=== PATIENT | male | born 1995 | race Caucasian/White ===

== ENCOUNTER 2018-04-03 12:46 | Emergency (ER) | payer MEDICAID ==
[~2018-04-03] VITALS: Ht 188 cm; Wt 113.6 kg
[~2018-04-03 12:46] MED LIST: HYDR1TAB PO; NO HOME MEDS
[2018-04-03 13:57] LABS: BASOPHILS % (AUTO) 0.4 % (0-1); EOSINOPHILS # (AUTO) 0.1 X10'3 (0-0.9); HEMATOCRIT 46.9 % (42.0-52.0); HEMOGLOBIN 16.1 g/dl (14.0-17.9); LYMPHOCYTES # (AUTO) 1.8 X10'3 (1.1-4.8); LYMPHOCYTES % (AUTO) 24.3 % (21-51); MEAN CORPUSCULAR HEMOGLOBIN 29.7 PG (27.0-31.0); MEAN CORPUSCULAR HGB CONC 34.3 % (33.0-36.5); MEAN CORPUSCULAR VOLUME 86.6 FL (78-98); MEAN PLATELET VOLUME 7.5 FL (7.4-10.4); MONOCYTES # (AUTO) 0.6 X10'3 (0-0.9); MONOCYTES % (AUTO) 7.8 % (2-12); NEUTROPHILS # (AUTO) 4.9 X10'3 (1.8-7.7); NEUTROPHILS % (AUTO) 66.5 % (42-75); PLATELET COUNT 372 X10'3 (140-440); RED BLOOD COUNT 5.41 X10'6 (4.70-6.10); RED CELL DISTRIBUTION WIDTH 12.6 % (11.5-14.5); WHITE BLOOD COUNT 7.4 X10'3 (4.5-11.0)
[2018-04-03 14:10] LABS: INR 1.1 INR; PARTIAL THROMBOPLASTIN TIME 26 SECONDS (22-32); PROTHROMBIN TIME 11.5 SECONDS (9.0-12.0)
[2018-04-03 14:13] LABS: ALANINE AMINOTRANSFERASE 42 U/L (12-78); ALBUMIN 4.5 G/DL (3.4-5.0); ALBUMIN/GLOBULIN RATIO 1.3 (1.1-1.5); ALKALINE PHOSPHATASE 64 IU/L (46-116); ANION GAP 11 (8-16); ASPARTATE AMINO TRANSFERASE 18 U/L (10-37); BILIRUBIN,TOTAL 0.6 MG/DL (0.1-1.0); BLOOD UREA NITROGEN 16 MG/DL (7-18); BUN/CREATININE RATIO 14.7 (5.4-32.0); CALCIUM 9.3 MG/DL (8.5-10.1); CHLORIDE 103 MMOL/L (99-107); CREATININE 1.09 MG/DL (0.60-1.10); GLUCOSE 93 MG/DL (70-104); POTASSIUM 3.9 MMOL/L (3.5-5.1); SODIUM 142 MMOL/L (135-145); TOTAL CARBON DIOXIDE 28.4 MMOL/L (24-32); TOTAL PROTEIN 7.9 G/DL (6.4-8.2); eGFR 83 ML/MIN
[2018-04-03 14:44] VITALS: BP 150/60
== END 2018-04-03 14:47 | disposition home or self-care (01) ==
LOC: ER 12:47
DX: R07.89 Other chest pain (principal); F12.90 Cannabis use, unspecified, uncomplicated; F17.200 Nicotine dependence, unspecified, uncomplicated; Z98.890 Other specified postprocedural states; Z60.2 Problems related to living alone; Z79.899 Other long term (current) drug therapy
CPT/HCPCS: 36415; 71045; 80053; 84484; 85025; 85610; 85730; 93005; 99284

== ENCOUNTER 2018-04-15 02:55 | Emergency (ER) | payer MEDICAID ==
[~2018-04-15] VITALS: Ht 181 cm; Wt 111.0 kg
[2018-04-15 03:13] VITALS: BP 130/80
[2018-04-15] MEDS ORDERED: ketorolac trometh inj. 60 MG/2 ML VIAL IM ONE (04:55)
[2018-04-15] MEDS ORDERED: proCHLORperazine 10mg tablet PO ONE (04:55)
== END 2018-04-15 05:32 | disposition home or self-care (01) ==
LOC: ER 02:56
DX: R51 Headache (principal); F12.90 Cannabis use, unspecified, uncomplicated; Z90.89 Acquired absence of other organs
CPT/HCPCS: 70450; 96372; 99284; J1885; Q0164

== ENCOUNTER 2018-04-16 18:48 | Emergency (ER) | payer MEDICAID ==
[~2018-04-16] VITALS: Ht 180.3 cm; Wt 111.0 kg
--- NOTE | 2018-04-16 19:28 | NUR ---
pt placed on cuff turner to monitor ECG
[2018-04-16] MEDS ORDERED: LORazepam 2 mg/ml vial IM ONE (20:20)
[2018-04-16] MEDS ORDERED: HYDROcodone/acetaminophen 10/325mg tab PO ONE (20:20)
[2018-04-16 20:40] VITALS: BP 126/70
--- NOTE | 2018-04-16 21:14 | NUR ---
pt's heart rate dropped 40's momentarily while he was sitting in bed, and quikly returned to 60-70 bpm's. he reported an intermittent sensation, reported it as "a head farias like when i smoke a lot of weed". he became anxious and I re-checked his BP which was elevated at this pont at 141/108. Dr. Hill notified. she will reasses pt.
== END 2018-04-16 21:39 | disposition home or self-care (01) ==
LOC: ER 18:48
DX: R00.2 Palpitations (principal); F41.9 Anxiety disorder, unspecified; R51 Headache; R07.9 Chest pain, unspecified; F17.200 Nicotine dependence, unspecified, uncomplicated; F12.10 Cannabis abuse, uncomplicated
CPT/HCPCS: 36415; 84443; 96372; 99283; J2060

== ENCOUNTER 2018-04-21 02:14 | Emergency (ER) | payer MEDICAID ==
[~2018-04-21] VITALS: Ht 180.3 cm; Wt 106.0 kg
[2018-04-21] MEDS ORDERED: ketorolac trometh. 30mg/ml inj. IV ONE (02:40)
[2018-04-21] MEDS ORDERED: proCHLORperazine 10 MG/2 ml inj IV ONE (02:40)
[2018-04-21] MEDS ORDERED: diphenhydrAMINE 50 mg/ml inj IV ONE (02:40)
[2018-04-21] MEDS ORDERED: iohexol 350MG/ML 100ml bottle IV ONE (02:46)
--- NOTE | 2018-04-21 02:53 | NUR ---
Pt has been experiencing tendancies of fixation of physical ailments and forwarding symptoms to the internet and self diagnosis and experiencing anxiety r/t what he reads. He states he has never been like this in the past, only since about 2 months worth since he has started: "found pills at this one house, I thought they were an abx but they were something else...and I did research on them and I have all the side affects, then at the [facility] I did a hand ful of mushrooms and ever since then I have seen my trasers and even like tonight my calf muscle hurt so I looked it up on the internet and I thought I had a blood clot. And now I think I have an aneurysm" Seems like paranoid behavior, ua collected for UDS.
--- NOTE | 2018-04-21 02:58 | NUR ---
pt going to CT
[2018-04-21 03:18] LABS: URINE AMPHETAMINE SCREEN NEGATIVE (Neg); URINE BARBITUATE SCREEN NEGATIVE (Neg); URINE BENZODIAZEPINES SCREEN NEGATIVE (Neg); URINE CANNABINOID SCREEN POSITIVE (Neg); URINE COCAINE SCREEN NEGATIVE (Neg); URINE METHADONE SCREEN NEGATIVE (Neg); URINE OPIATE SCREEN NEGATIVE (Neg); URINE PHENCYCLIDINE SCREEN NEGATIVE (Neg)
--- NOTE | 2018-04-21 03:40 | NUR ---
went to administer his medications and all he talked about was his IV, fixated on it.
--- NOTE | 2018-04-21 04:55 | NUR ---
PT is currently listening to country music, lights out, and he has the blanket pulled over his head, assume he is asleep
[2018-04-21 05:23] VITALS: BP 145/85
== END 2018-04-21 05:24 | disposition home or self-care (01) ==
LOC: ER 02:14
DX: R07.89 Other chest pain (principal); R51 Headache; F12.90 Cannabis use, unspecified, uncomplicated; Z98.890 Other specified postprocedural states; Z60.2 Problems related to living alone; Z79.899 Other long term (current) drug therapy
CPT/HCPCS: 70496; 80305; 93005; 96374; 96375; 99284; J0780; J1200; J1885; Q9967

== ENCOUNTER 2024-01-13 21:22 | Emergency (ER) | payer MEDICAID ==
[~2024-01-13] VITALS: Ht 188 cm; Wt 136.0 kg
[2024-01-13 21:35] VITALS: TEMP 98.1
[2024-01-13 22:03] LABS: BASOPHILS # (AUTO) 0.1 X10'3 (0-0.2); BASOPHILS % (AUTO) 1.3 % (0-1); EOSINOPHILS # (AUTO) 0.2 X10'3 (0-0.9); EOSINOPHILS % (AUTO) 1.9 % (0-6); HEMATOCRIT 41.6 % (42.0-52.0); HEMOGLOBIN 14.2 g/dl (14.0-17.9); LYMPHOCYTES # (AUTO) 3.6 X10'3 (1.1-4.8); LYMPHOCYTES % (AUTO) 36.3 % (21-51); MEAN CORPUSCULAR HEMOGLOBIN 29.4 PG (27.0-31.0); MEAN CORPUSCULAR HGB CONC 34.1 g/dL (33.0-36.5); MEAN CORPUSCULAR VOLUME 86.2 FL (78-98); MEAN PLATELET VOLUME 7.4 FL (7.4-10.4); MONOCYTES # (AUTO) 0.9 X10'3 (0-0.9); MONOCYTES % (AUTO) 9.5 % (2-12); PLATELET COUNT 335 X10'3 (140-440); RED BLOOD COUNT 4.82 X10'6 (4.70-6.10); RED CELL DISTRIBUTION WIDTH 13.1 % (11.5-14.5); WHITE BLOOD COUNT 9.9 X10'3 (4.5-11.0)
[2024-01-13 22:24] LABS: ALANINE AMINOTRANSFERASE 110 U/L (12-78); ALBUMIN 3.9 G/DL (3.4-5.0); ALBUMIN/GLOBULIN RATIO 1.1 (1.1-1.5); ALKALINE PHOSPHATASE 90 IU/L (46-116); ANION GAP 8 (8-16); ASPARTATE AMINO TRANSFERASE 53 U/L (10-37); BILIRUBIN,TOTAL 0.5 MG/DL (0.1-1.0); BLOOD UREA NITROGEN 14 MG/DL (7-18); BUN/CREATININE RATIO 13.7 (10.0-20.0); CALCIUM 8.6 MG/DL (8.5-10.1); CHLORIDE 104 MMOL/L (99-107); CREATININE 1.02 MG/DL (0.60-1.10); GLUCOSE 93 MG/DL (70-104); POTASSIUM 3.9 MMOL/L (3.5-5.1); SODIUM 140 MMOL/L (135-145); TOTAL CARBON DIOXIDE 28.5 MMOL/L (24-32); TOTAL PROTEIN 7.3 G/DL (6.4-8.2); eCRCL 123 ML/MIN; eGFR 86 ML/MIN
[2024-01-13 22:30] LABS: PRO BRAIN NATRIURETIC PEPTIDE 39 PG/ML (0-125)
[2024-01-13] MEDS ORDERED: ESCI10TA PO (22:32)
[2024-01-13 23:10] VITALS: BP 159/89; PULSE 89; RESP 16; O2SAT 99
== END 2024-01-13 23:39 | disposition home or self-care (01) ==
LOC: ER 21:23
DX: R51.9 Headache, unspecified (principal); R07.9 Chest pain, unspecified; F41.9 Anxiety disorder, unspecified; F12.90 Cannabis use, unspecified, uncomplicated; F17.290 Nicotine dependence, other tobacco product, uncomplicated; Z60.2 Problems related to living alone; Z79.899 Other long term (current) drug therapy; Z98.890 Other specified postprocedural states
CPT/HCPCS: 36415; 71045; 80053; 83880; 84484; 85025; 93005; 99285

== ENCOUNTER 2024-05-21 15:51 | Emergency (ER) | payer MEDICAID, OTHER ==
[~2024-05-21] VITALS: Ht 175.3 cm; Wt 141.4 kg
[~2024-05-21 15:51] MED LIST changes: +ESCI10TA PO
[2024-05-21 17:15] LABS: BASOPHILS # (AUTO) 0.1 X10'3 (0-0.2); BASOPHILS % (AUTO) 1.1 % (0-1); EOSINOPHILS # (AUTO) 0.1 X10'3 (0-0.9); EOSINOPHILS % (AUTO) 1.4 % (0-6); HEMOGLOBIN 15.6 g/dl (14.0-17.9); LYMPHOCYTES # (AUTO) 2.7 X10'3 (1.1-4.8); LYMPHOCYTES % (AUTO) 31.4 % (21-51); MEAN CORPUSCULAR HEMOGLOBIN 29.7 PG (27.0-31.0); MEAN CORPUSCULAR HGB CONC 35.4 g/dL (33.0-36.5); MEAN CORPUSCULAR VOLUME 83.9 FL (78-98); MEAN PLATELET VOLUME 7.6 FL (7.4-10.4); MONOCYTES # (AUTO) 0.5 X10'3 (0-0.9); MONOCYTES % (AUTO) 6.5 % (2-12); NEUTROPHILS % (AUTO) 59.6 % (42-75); PLATELET COUNT 363 X10'3 (140-440); RED BLOOD COUNT 5.24 X10'6 (4.70-6.10); RED CELL DISTRIBUTION WIDTH 13.1 % (11.5-14.5); WHITE BLOOD COUNT 8.5 X10'3 (4.5-11.0)
[2024-05-21 17:26] LABS: ALANINE AMINOTRANSFERASE 101 U/L (12-78); ALBUMIN 4.3 G/DL (3.4-5.0); ALBUMIN/GLOBULIN RATIO 1.1 (1.1-1.5); ALKALINE PHOSPHATASE 101 IU/L (46-116); BILIRUBIN,TOTAL 0.4 MG/DL (0.1-1.0); BLOOD UREA NITROGEN 14 MG/DL (7-18); BUN/CREATININE RATIO 16.9 (10.0-20.0); CHLORIDE 103 MMOL/L (99-107); CREATININE 0.83 MG/DL (0.60-1.10); GLUCOSE 113 MG/DL (70-104); PRO BRAIN NATRIURETIC PEPTIDE 33 PG/ML (0-125); THYROID STIMULATING HORMONE 5.99 ulU/ml (0.34-4.50); TOTAL CARBON DIOXIDE 32.3 MMOL/L (24-32); TOTAL PROTEIN 8.3 G/DL (6.4-8.2); eCRCL 130 ML/MIN; eGFR > 90 ML/MIN
[2024-05-21 17:53] LABS: ANION GAP 3 (8-16); ASPARTATE AMINO TRANSFERASE 37 U/L (10-37); SODIUM 138 MMOL/L (135-145)
[2024-05-21] MEDS ORDERED: HYDR-3686 PO (19:14)
[2024-05-21] MEDS: acetaminophen 325mg tablet PO ONE (19:20)
[2024-05-21 19:24] VITALS: BP 121/98; PULSE 87; RESP 16; TEMP 97.8; O2SAT 100
== END 2024-05-21 19:41 | disposition home or self-care (01) ==
LOC: ER 15:52
DX: R07.89 Other chest pain (principal); F41.9 Anxiety disorder, unspecified; F12.90 Cannabis use, unspecified, uncomplicated; Z90.89 Acquired absence of other organs; Z79.899 Other long term (current) drug therapy; Z60.2 Problems related to living alone
CPT/HCPCS: 36415; 80053; 83880; 84443; 84484; 85025; 93005; 99284

== ENCOUNTER 2024-09-17 08:07 | Emergency (ER) | payer MEDICAID ==
[~2024-09-17] VITALS: Ht 182.9 cm; Wt 136.4 kg
[~2024-09-17 08:07] MED LIST changes: +HYDR-3686 PO
[2024-09-17 08:10] VITALS: BP 155/80; PULSE 70; RESP 16; O2SAT 99
[2024-09-17] MEDS: penicillin V potassium 500mg tablet PO ONE (09:32)
[2024-09-17] MEDS: ibuprofen tablet 400 MG TABLET PO ONE (09:32)
--- NOTE | 2024-09-17 09:43 | Physician Documentation ---
HPI ~ General Chief Complaint: Tooth Problem Stated Complaint: ABSCESS TOOTH Time Seen by MD: 09:00 Primary Medical Doctor: [facility] History of Present Illness HPI Comment Patient is here with dental pain. He has pain in his right lower wisdom tooth. This is the 4th flare up he has had. No trauma no fevers or chills no trouble swallowing or any other symptoms. Medication Reconciliation Allergies: Coded Allergies: No Known Allergies (Unverified , 06/05/14) Scheduled Escitalopram Oxalate (Lexapro), 1 TAB PO DAILY Hydrocodone/Acetaminophen (Vicodin 5-500 Tablet), 1 TAB PO Q6H Scheduled PRN Hydroxyzine Hcl (Atarax), 1 TAB PO Q12H PRN for for anxiety/agitation Miscellaneous Medications Home Med List (No Home Medications), (Reported) Past Medical History Past Medical History: Anxiety Past Surgical History: tonsillectomy Alcohol Use: None Drug Use: marijuana Lives with: Alone Lives In: Home Physical Exam Vital Signs: Heart Rate: 70, Respiratory Rate: 16, BP: 155/80, Pulse Oximetry: 99, Weight: 136.400 Physical Exam General: Awake and Alert, no acute distress. HEENT: Conjunctiva pink, Sclera clear, impacted right lower wisdom tooth little bit of gingival swelling this face is not swollen no facial erythema he is not drooling he is protecting his airway. Neck: Supple Resp: Unlabored. Heart: Good perfusion Abdomen: Nondistended Extremities: No cyanosis,clubbing or edema. Skin: Warm and Dry. Neuro: no focal deficits Progress Results/Orders Results/Orders Completed Orders - REY DUPONT MD Penicillin V Potassium Tablet (P[place]illi (09/17/24 09:20) Ibuprofen Tablet (Motrin Tablet) (09/17/24 09:20) Medications Received in ER Medications (Trade) Dose Ordered Sig/Pedro Route PRN Reason Start Time Stop Time Status Last Admin Dose Admin (penicillin V potassium tablet) 500 mg ONCE ONCE PO 09/17/24 09:20 09/17/24 09:21 DC 09/17/24 09:32 500 MG (Motrin tablet) 400 mg ONCE ONCE PO 09/17/24 09:20 09/17/24 09:21 DC 09/17/24 09:32 400 MG Vital Signs 09/17/24 08:10 Pulse 70 Resp 16 B/P (MAP) 155/80 Pulse Ox 99 Medical Decision Making Findings Patient is here with a pain to the right lower wisdom tooth. He needs to have it extracted. He said he did not have insurance I spoke with the registration and apparently has [facility]. So he needs to follow up with dentist or oral surgeon. With the short term he was given ibuprofen in the ED in his swollen and prescriptions for both. Departure Disposition: HOME / SELF CARE / HOMELESS Impression: Primary Impression: Toothache Condition: Stable Discharge Instructions: Dental Pain Referrals: NO PRIMARY CARE PROVIDER (PCP) Education Educated: Patient Educated regarding: diagnosis, treatment, prognosis, need for follow up Signature Scribe Signature: no scribe Attestation: no scribe REY DUPONT MD Sep 17, 2024 09:43
[2024-09-17] MEDS ORDERED: PENI-88 PO (09:44)
[2024-09-17] MEDS ORDERED: IBUP-1985 PO (09:45)
== END 2024-09-17 09:49 | disposition home or self-care (01) ==
LOC: ER 08:08
DX: K08.89 Other specified disorders of teeth and supporting structures (principal); F12.90 Cannabis use, unspecified, uncomplicated; F41.9 Anxiety disorder, unspecified; Z79.899 Other long term (current) drug therapy; Z60.2 Problems related to living alone
CPT/HCPCS: 99283